=== PATIENT | female | born 1985 | race Caucasian/White ===

== ENCOUNTER → 2023-10-04 06:42 | Outpatient (CLI) | payer OTHER, SELFPAY ==
--- NOTE | 2023-10-04 06:45 | DI.US.S_ITS ---
PROCEDURE: US ABDOMEN LIMITED INDICATIONS: GERD WO ESOPHAGITIS,VOMITING TECHNIQUE: Real-time scanning was performed of the abdominal and retroperitoneal organs, with image documentation. COMPARISON: None. FINDINGS: Liver: Liver is normal in size and homogeneous in echotexture. Gallbladder: No gallstone, pericholecystic fluid or gallbladder wall thickening. Biliary ducts: Intrahepatic bile ducts are non-dilated. Extrahepatic bile duct caliber measures 5 mm. Normal is 6-7 mm or less in diameter, or 10 mm or less post-cholecystectomy. Pancreas: Visualized portions of the pancreas are sonographically normal. Miscellaneous: No free abdominal fluid. IMPRESSION: No evidence for cholelithiasis. Dictated by: Aydin Mckenzie M.D. on 10/04/2023 at 10:11 Approved by: Aydin Mckenzie M.D. on 10/04/2023 at 10:13
== END ==
LOC: US 06:45
PROVIDERS: PCP Student in an Organized Health Care Education/Training Program; Referring Provider Internal Medicine Gastroenterology; Visit Provider Internal Medicine Gastroenterology
DX: K21.9 Gastro-esophageal reflux disease without esophagitis (principal); R11.2 Nausea with vomiting, unspecified
CPT/HCPCS: 76705

== ENCOUNTER 2023-10-11 13:57 | Day surgery (SDC) | payer OTHER, SELFPAY ==
--- NOTE | 2023-10-11 | PATH_ITS ---
[facility] Accession Number: [id number] No. of containers..01 Tissue . 01 Material submitted: . gastrointestinal site - ANTRUM . 01 Clinical history: . (H.PYLORI) . 01 Diagnosis: A. STOMACH, ANTRUM, BIOPSY: Gastric antral-type mucosa with mild reactive gastropathy. Negative for intestinal metaplasia and dysplasia. No Helicobacter pylori organisms on immunohistochemistry. MRV 10/13/2023 2019 Local . 01 Electronically signed: . Delicia Spaulding MD, Pathologist NPI- [id number] . 01 Gross description: . ANTRUM: Received in formalin are 2 fragment(s) of bales, soft tissue measuring 0.1 x 0.1 x 0.1 cm in aggregate submitted entirely in 1 cassette(s) /SHIV 10/12/2023 0140 Local . 01 Microscopic: . An immunohistochemical stain was performed to evaluate for Helicobacter organisms and is negative. The control stain showed appropriate reactivity. . * This test was developed and its performance characteristics determined by [facility]. It has not been cleared or approved by the U.[place]. Food and Drug Administration. The FDA has determined that such clearance or approval is not necessary. This test is used for clinical purposes. It should not be regarded as investigational or for research. . 01 Pathologist provided ICD-10: K21.9 . 01 CPT . 478970, S18289 Specimen Comment: A courtesy copy of this report has been sent to [phone] Performed at: [address] [address], [place], [place] [id number] MD Jimi Grady MD Phone: [phone]
[2023-10-11 14:51] VITALS: BP 127/83; PULSE 81; RESP 16; TEMP 36.4; O2SAT 98
[2023-10-11] MEDS: LACTATED RINGERS 1,000 ML 42 ML IV (15:01)
--- NOTE | 2023-10-11 16:04 | PM.HP.1 ---
History of Present Illness History of Present Illness Date Patient Seen: 10/11/23 Time Patient Seen: 16:04 Chief complaint: SDC Narrative: 38-year-old female with history of somewhat refractory GERD symptoms, change in bowel habits (constipation), family history of colon cancer. EGD and colonoscopy are pursued today. No changes with respect to my recent office visit note. PFSH Social History Smoking Status: Never smoker Meds Home Medications and Allergies Home Medications Medication Instructions Recorded Confirmed Type norgestrel 0.3 mg-ethinyl 1 tab PO DAILY 10/11/23 10/11/23 History estradiol 30 mcg tablet (Parrish (28)) pantoprazole 20 mg tablet,delayed 20 mg PO DAILY 10/11/23 10/11/23 History release Allergies Allergy/AdvReac Type Severity Reaction Status Date / Time amoxicillin Allergy Mild Rash Verified 10/11/23 14:49 Review of Systems Review of Systems ROS: Yes All systems reviewed with the patient and are negative except as otherwise documented Exam Vital Signs (past 8 hours): - 10/11/23 14:51 Temperature 97.5 F L Pulse Rate 81 Respiratory Rate 16 Blood Pressure 127/83 Pulse Oximetry 98 Oxygen Delivery Method Room Air Oxygen Delivery Method Room Air Const General: cooperative HENMT Head: normal to inspection Eyes General: appearance normal, both eyes and all related structures Neck Neck: normal visual inspection Chest Chest: normal inspection of the chest Resp Effort & Inspection: normal respiratory effort Cardio Rate: regular rate GI Inspection: normal to inspection Skin General: no rashes or lesions noted Neuro General: patient alert and patient awake Extrem General: normal to inspection and no pedal edema Psych Appearance: grossly normal Assessment & Plan Assessment & Plan narrative: 38-year-old female with refractory GERD, change in bowel habits, family history of colon cancer. EGD and colonoscopy are pursued today. Time-Based Coding :: [TOTAL MINUTES] spent with patient and on the chart (including review of chart, obtaining history, exam, reviewing outside data, placing orders, documenting exam and treatment plan, and counseling patient) on [DATE].
--- NOTE | 2023-10-11 16:05 | PM.PREOP ---
Pre-operative Note Interval Note History & Physical reviewed/Exam performed by Physician: Yes Changes to H&P: No ASA Class (for procedural sedation): II
--- NOTE | 2023-10-11 17:11 | PM.OP.EC ---
Operative Date/Time/Diagnoses Date of procedure: 10/11/23 Time of procedure: 17:11 Pre-op diagnosis: GERD, altered bowel habit, family history colon cancer Post-op diagnosis: same Procedure & Clinicians Study performed: EGD with biopsies and colonoscopy Same procedure as scheduled: Yes Indications: GERD, change in bowel habits, family history of colon cancer Surgeon: Zachary [place] Procedure Notes SCOAP/Timeout: Done Procedure in detail: After the risks and benefits were explained, written and verbal informed consent was obtained. The patient was brought into the procedure room and placed into the left lateral decubitus position. Conscious sedation medication was applied as per nursing documentation. The scope was introduced into the mouth through the bite block and advanced under direct visualization to the 2nd portion of the duodenum. The scope was slowly withdrawn carefully examining the mucosa for any defects or lesions. Retroflexed views were accomplished in the stomach. The stomach was decompressed, the scope was then removed from the patient who tolerated the procedure well. The patient was then turned around. A digital rectal examination was accomplished. The scope was introduced into the rectum and advanced to the cecum as identified by the appendiceal orifice and ileocecal valve. The terminal ileum was interrogated. The scope was then slowly withdrawn to carefully examine the mucosa for any defects or lesions. Multiple direct views were made through the dentate line for exclusion of pathology. The colon was decompressed. The scope was removed from the patient who tolerated the procedure well. Pediatric colonoscope Bowel prep adequate Scope withdrawal time: 7 minutes Sedation minutes: 24 Complications: none Impression: 1. Duodenal: Other than a fairly tortuous C-loop, the mucosa was normal from the bulb into the 2nd portion. 2. Stomach: Mild streaky erythema was noted in the antrum. No ulcers. No mass lesions. No outlet obstruction. Biopsies were acquired from this location for exclusion of H pylori or other pathology. Retroflexed views of the LES were unremarkable. 3. Esophagus: The squamocolumnar junction correlated with the top of the gastric folds. GEJ was at about 37 cm from the incisors. No erosive esophagitis no strictures no mass lesions. The esophagus was unremarkable throughout. The lower esophageal sphincter mechanism was deemed to be fairly patulous. 4. Terminal ileum: This was visually normal 5. Colon: Visually normal throughout. Slightly tortuous left colon. There was a column of hemorrhoidal engorgement noted on rectal exam which was easily reduced digitally. No polyps or mass lesions identified throughout. Endoscopic diagnosis 1. Gastropathy 2. Patulous lower esophageal sphincter mechanism 3. Mild singular column of hemorrhoids grade 3 4. Slightly twisty colon 5. Otherwise visually normal colonoscopy Post-procedure Plan for aftercare: 1. Await histology. 2. Continue anti-reflux therapy and taper off PPI down to famotidine as able. 3. Continue fiber supplementation titrating it to the desired stool consistency and frequency. 4. Repeat colonoscopy for colon cancer screening in 10 years (a single second-degree relative with colon cancer was identified). Disposition: PACU
[2023-10-11 17:12] VITALS: BP 101/75; PULSE 84; RESP 14; TEMP 36.4; O2SAT 99
[2023-10-11 17:17] VITALS: BP 117/81; PULSE 79; RESP 19; O2SAT 99
[2023-10-11 17:23] VITALS: BP 122/81; PULSE 66; RESP 18; O2SAT 99
[2023-10-11 17:35] VITALS: BP 119/84; PULSE 62; RESP 16; O2SAT 99
== END 2023-10-11 17:37 | disposition home or self-care (01) ==
PROVIDERS: PCP Student in an Organized Health Care Education/Training Program; Referring Provider Internal Medicine Gastroenterology; Visit Provider Internal Medicine Gastroenterology
PROC: 0DJ08ZZ Inspection of Upper Intestinal Tract, Via Natural or Artificial Opening Endoscopic (ICD-10-PCS; CPT 45378; principal; 2023-10-11 15:00)
PROC: 0DJD8ZZ Inspection of Lower Intestinal Tract, Via Natural or Artificial Opening Endoscopic (ICD-10-PCS; CPT 45378; 2023-10-11 15:00)
DX: Z12.11 Encounter for screening for malignant neoplasm of colon (principal); Z80.0 Family history of malignant neoplasm of digestive organs; K21.9 Gastro-esophageal reflux disease without esophagitis; R19.4 Change in bowel habit; K31.9 Disease of stomach and duodenum, unspecified
CPT/HCPCS: 45378; 43239; J2704

== ENCOUNTER → 2023-10-25 08:13 | Outpatient (CLI) | payer OTHER, SELFPAY ==
--- NOTE | 2023-10-25 08:14 | DI.MRI.S_ITS ---
PROCEDURE: MR KNEE RT WO CON INDICATIONS: EVALUATE RT MENISCUS TEAR TECHNIQUE: Noncontrast sagittal PD fast spin echo and T2 fast spin echo with fat saturation, sagittal 3-D FLASH with fat saturation; coronal T1 spin echo and PD fast spin echo with fat saturation, and axial PD fast spin echo with fat saturation through the knee. COMPARISON: None. FINDINGS: Image quality: Excellent. Anterior cruciate ligament: Intact. Posterior cruciate ligament: Intact. Medial collateral ligament: Intact. Lateral collateral ligament: Intact. Medial meniscus: Postsurgical changes from partial medial meniscectomy with a markedly diminutive residual rim of meniscal tissue. There is horizontal [id number] signal at the meniscal body suggesting recurrent horizontal tearing. Lateral meniscus: Intact. Medial and lateral tendons: The semimembranosus tendon insertions appear intact. Visualized portions of the pes anserinus tendons appear normal. The popliteus tendon is intact. Iliotibial band appears normal. Anterior structures: The quadriceps and patellar tendons appear intact. No patellar subluxation. No femoral trochlear dysplasia or ventral trochlear prominence. No edema in the infrapatellar fat pad. Bones and cartilage: No bone marrow contusions or fractures. Medial femorotibial cartilage: A large area of full-thickness cartilage loss is seen in the weight-bearing portion of the medial femorotibial compartment with moderate subchondral edema. Lateral femorotibial cartilage: Mild surface cartilage irregularity. No focal cartilage defect. Patellofemoral cartilage: Mild partial-thickness cartilage irregularity at the trochlear groove. Soft tissues: Small joint effusion. Trace medial popliteal cyst. The musculature surrounding the knee is normal in bulk. IMPRESSION: 1. Postsurgical changes are in partial medial meniscectomy with a diminutive residual rim of meniscal tissue. There is horizontal [id number] signal at the meniscal body that is suspicious for recurrent tearing. 2. Large area full-thickness cartilage loss throughout the weight-bearing portion of the medial femorotibial compartment with moderate subchondral edema. Very mild grade 2 chondromalacia in the lateral and anterior compartments. 3. No acute trabecular bone injury. Cruciate and collateral ligaments are intact. Lateral meniscus is intact. 4. Small joint effusion. Approved by: Adalid Haynes M.D. on 10/26/2023 at 12:53
== END ==
LOC: MRI 08:14
PROVIDERS: PCP Student in an Organized Health Care Education/Training Program; Referring Provider Orthopaedic Surgery; Visit Provider Orthopaedic Surgery
DX: M23.91 Unspecified internal derangement of right knee (principal); M25.461 Effusion, right knee
CPT/HCPCS: 73721